=== PATIENT | male | born 1955 | race African-American/Black ===

== ENCOUNTER 2016-10-21 18:03 | Inpatient (IN) | payer OTHER ==
[~2016-10-21] VITALS: Ht 185.4 cm; Wt 102.0 kg
[2016-10-21] VITALS (7 sets, daily range): BP systolic 154–174; BP diastolic 75–92
[~2016-10-21 18:03] MED LIST: ACCUPRIL10 MG PO; ACCUPRIL5 MG PO; ACTOS30 MG PO; ADVAIR 250/501 DISK IH; AMBIEN10 MG PO; ASPIRIN325 MG PO; AUGMENTIN875 MG PO; BENTYL20 MG PO; BP MED; CEFTIN500 MG PO; DEPO-PROVER150 MG/ML IM; DILAUDID2 MG PO; DOCUSATE SODIU100 MG PO; ENDOCET 5-3251 EACH PO; ENTEREG12 MG PO; FEOSOL325 MG PO; FLEXERIL10 MG PO; FOLIC ACID; FOLIC ACID1 MG PO; FOLVITE0.5 MG PO; GABAPENTIN300 MG PO; GLUCOPHAGE XR750 MG PO; GLUCOPHAGE1000 M1 PO; LANTUS 10100 UNITS/ SC; LANTUS 3 M100 UNITS/ SC; LANTUS 3 M100 UNITS1 SC; LANTUS100 UNIT/1 SC; LANTUS100 UNIT/1 SQ; LIDODERM 5% P1 PATCH TD; LIPITOR40 MG PO; LIPITOR5 MG PO; LITE COAT ASPI325 M1 PO; METFORMIN HCL1000 MG PO; MOBIC15 MG PO; NAPROSYN500 MG PO; NIASPAN,SLO-NI500 MG PO; NICOTINE PATCH1 EAC2 TD; NORCO 7.5/321 TABLET PO; NOVOLOG PE100 UNITS/ SC; PERCOCET 10/1 TABLET PO; PERCOCET 5/31 TABLET PO; PREDNISONE10 MG PO; PROAIR HFA8.5 GM IH; PriLOSEC PO; QUINAPRIL HCL20 MG PO; QUINAPRIL HCL5 MG PO; SYMBICORT60 INHALAT IH; THERAGRAN1 TABLET PO; TORADOL10 MG PO; ULTRAM50 MG PO; VALIUM5 MG PO; VENTOLIN HFA18 GM IH; VITAMIN B-6100 MG PO
[2016-10-21 20:22] LABS: ABSOLUTE RETICULOCYTE CT. 0.15 M/uL (0.02-0.08); HEMATOCRIT 31.6 % (38.0-50.0); IMM.RETIC FRACTION 4.7 % (3-19); MCH 26.5 PG (29.0-34.0); MCV 71.7 FL (86-99); MEAN PLAT.VOLUME 10.4 uM^3 (9.0-12.4); PLATELET COUNT 250 K/uL (156-360); RBC DIS.WIDTH-CV 17.7 % (11.8-14.6); RBC DIS.WIDTH-SD 44.8 % (39-53); RED BLOOD COUNT 4.41 M/uL (4.00-5.50); WHITE BLOOD COUNT 15.9 K/uL (4.1-10.2)
[2016-10-21 20:30] LABS: CHLORIDE 108 mEq/L (99-109); POTASSIUM 4.5 mEq/L (3.7-5.4); SODIUM 139 mEq/L (136-147)
[2016-10-21 20:32] LABS: GLUCOSE 494 mg/dL (70-99)
[2016-10-21 20:33] LABS: ANION GAP 8 MEQ/L (2-14)
[2016-10-21 20:36] LABS: GFR ESTIMATE (CALCULATED) > 59 mL/min/
[2016-10-21 20:37] LABS: UREA NITROGEN (BUN) 16 mg/dL (9-23)
[2016-10-21 20:55] LABS: SAMPLE HEMOLYSIS CHECK 0; SAMPLE ICTERIC CHECK 0; SAMPLE LIPEMIA CHECK 1
[2016-10-21 21:01] LABS: LACTATE DEHYDROGENASE 362 IU/L (20-246)
[2016-10-21 21:03] LABS: TROP-I INTERPRETATION NEGATIVE; TROPONIN-I < 0.01 ng/mL (0.0-0.30)
[2016-10-21 21:06] LABS: CARBON DIOXIDE (BICARBONATE) 31.2 MEQ/L (20-31)
[2016-10-21 21:28] LABS: BASOPHIL COUNT 0.1 K/uL (0-0.1); EOSINOPHIL (%) 4.3 % (0-5); EOSINOPHIL COUNT 0.7 K/uL (0-0.3); HEMATOLOGY COMMENT 1 SMEAR COMPATIBLE; IMMATURE GRANULOCYTE (%) 1.1 % (0.0-0.7); IMMATURE GRANULOCYTE COUNT 1.7 K/uL; LYMPHOCYTE COUNT 2.4 K/uL (1.0-2.8); MONOCYTE (%) 8.8 % (3-12); MONOCYTE COUNT 1.4 K/uL (0-0.8); NEUTROPHIL (%) 70.2 % (45-76); NEUTROPHIL COUNT 11.2 K/uL (1.8-6.4); RETICULOCYTE COUNT 3.3 % (0.5-1.8); USER ID WCD
[2016-10-22] MEDS ORDERED: ACCUPRIL40 MG PO (00:36)
[2016-10-22 03:02] VITALS: BP 174/82
[2016-10-22 06:33] LABS: HEMATOCRIT 29.6 % (38.0-50.0); MCH 26.1 PG (29.0-34.0); MCHC 35.8 G/DL (30.0-36.0); MCV 72.9 FL (86-99); MEAN PLAT.VOLUME 10.4 uM^3 (9.0-12.4); PLATELET COUNT 218 K/uL (156-360); RED BLOOD COUNT 4.06 M/uL (4.00-5.50); WHITE BLOOD COUNT 17.7 K/uL (4.1-10.2)
[2016-10-22 06:47] LABS: ALKALINE PHOSPHATASE 127 IU/L (3-129); ANION GAP 5 MEQ/L (2-14); CHLORIDE 108 MEQ/L (99-109); GFR ESTIMATE (CALCULATED) > 59 mL/min/; POTASSIUM 4.1 MEQ/L (3.7-5.4); SAMPLE HEMOLYSIS CHECK 0; SAMPLE ICTERIC CHECK 0; SAMPLE LIPEMIA CHECK 0; SODIUM 140 MEQ/L (136-147); TOTAL BILIRUBIN 1.1 MG/DL (0.0-1.0); UREA NITROGEN (BUN) 9 mg/dL (9-23)
[2016-10-22 06:52] LABS: GLUCOSE 197 mg/dL (70-99)
[2016-10-22 08:06] LABS: POINT-OF-CARE METER ID UU14100415
[2016-10-22 08:13] VITALS: BP 137/63
[2016-10-22 12:00] VITALS: BP 138/77
[2016-10-22 13:44] LABS: ADD MIUA? NO; BILIRUBIN NEGATIVE; BLOOD NEGATIVE; COLOR YELLOW ((YELLOW)); GLUCOSE (STRIP) 50; KETONES NEGATIVE; LEUKOCYTES NEGATIVE; NITRITE NEGATIVE; PROTEIN (STRIP) NEGATIVE; UCUL ADDED? NO; UROBILINOGEN 0.2 MG/DL (0.2-1.0)
[2016-10-22 15:46] VITALS: BP 151/67
[2016-10-22 19:30] VITALS: BP 132/58
[2016-10-22 21:00] LABS: POINT-OF-CARE METER ID UU13113725
[2016-10-22 23:07] VITALS: BP 127/70
[2016-10-23 03:33] VITALS: BP 150/81
[2016-10-23 08:08] VITALS: BP 132/67
[2016-10-23 09:30] LABS: ALKALINE PHOSPHATASE 154 IU/L (3-129); ANION GAP 7 MEQ/L (2-14); CHLORIDE 103 MEQ/L (99-109); GFR ESTIMATE (CALCULATED) > 59 mL/min/; GLUCOSE 190 mg/dL (70-99); LACTATE DEHYDROGENASE 326 IU/L (20-246); POTASSIUM 3.9 MEQ/L (3.7-5.4); SAMPLE HEMOLYSIS CHECK 0; SAMPLE ICTERIC CHECK 0; SAMPLE LIPEMIA CHECK 0; SODIUM 138 MEQ/L (136-147); UREA NITROGEN (BUN) 10 mg/dL (9-23)
[2016-10-23 09:31] LABS: TOTAL BILIRUBIN 1.9 MG/DL (0.0-1.0)
[2016-10-23 09:51] LABS: ABSOLUTE RETICULOCYTE CT. 0.24 M/uL (0.02-0.08); HEMATOCRIT 29.2 % (38.0-50.0); IMM.RETIC FRACTION 10.8 % (3-19); MCH 26.9 PG (29.0-34.0); MCV 72.8 FL (86-99); MEAN PLAT.VOLUME 10.6 uM^3 (9.0-12.4); PLATELET COUNT 204 K/uL (156-360); RBC DIS.WIDTH-CV 17.6 % (11.8-14.6); RED BLOOD COUNT 4.01 M/uL (4.00-5.50); WHITE BLOOD COUNT 15.4 K/uL (4.1-10.2)
[2016-10-23 10:04] LABS: RETICULOCYTE COUNT 5.9 % (0.5-1.8)
[2016-10-23 11:13] VITALS: BP 155/82
[2016-10-23 11:36] LABS: POINT-OF-CARE METER ID UU13113725
[2016-10-23 15:30] VITALS: BP 129/71
[2016-10-23 23:04] VITALS: BP 147/77
[2016-10-24 08:04] VITALS: BP 132/80
[2016-10-24 09:29] LABS: MCH 26.8 PG (29.0-34.0); MCHC 36.5 G/DL (30.0-36.0); MCV 73.6 FL (86-99); MEAN PLAT.VOLUME 10.1 uM^3 (9.0-12.4); PLATELET COUNT 192 K/uL (156-360); RBC DIS.WIDTH-CV 17.9 % (11.8-14.6); RBC DIS.WIDTH-SD 47.8 % (39-53); RED BLOOD COUNT 4.21 M/uL (4.00-5.50); WHITE BLOOD COUNT 15.9 K/uL (4.1-10.2)
[2016-10-24 09:42] LABS: ANION GAP 10 MEQ/L (2-14); CHLORIDE 99 MEQ/L (99-109); GFR ESTIMATE (CALCULATED) > 59 mL/min/; GLUCOSE 280 mg/dL (70-99); SAMPLE HEMOLYSIS CHECK 0; SAMPLE ICTERIC CHECK 0; SAMPLE LIPEMIA CHECK 0; SODIUM 134 MEQ/L (136-147); UREA NITROGEN (BUN) 14 mg/dL (9-23)
[2016-10-24 11:10] VITALS: BP 146/77
[2016-10-24 15:33] VITALS: BP 135/69
[2016-10-24 16:47] LABS: POINT-OF-CARE METER ID UU13113725
[2016-10-24 20:58] LABS: APPEARANCE CLEAR/COLORLESS
[2016-10-24 21:09] LABS: RED CELL AREA COUNTED 18; RED CELL COUNT 0 /MM^3 (0-1); RED CELL DILUTION 1; WBC AREA COUNTED 18; WBC DILUTION 1; WHITE CELL COUNT 1 /MM^3 (0-5); WHITE CELL RAW COUNT 2
[2016-10-24 21:43] LABS: CSF EOSINOPHILS 0 % (0-25); MONO RAW COUNT 11; MONONUCLEAR WBC'S 100 % (50-90); POLYNUCLEAR WBC'S 0 % (0-3)
[2016-10-24 22:55] VITALS: BP 127/59
[2016-10-25 08:39] VITALS: BP 111/59
[2016-10-25 08:57] LABS: HEMATOCRIT 27.1 % (38.0-50.0); MCH 26.6 PG (29.0-34.0); MCHC 36.5 G/DL (30.0-36.0); MCV 72.8 FL (86-99); MEAN PLAT.VOLUME 10.9 uM^3 (9.0-12.4); PLATELET COUNT 212 K/uL (156-360); RBC DIS.WIDTH-CV 17.6 % (11.8-14.6); RBC DIS.WIDTH-SD 46.5 % (39-53); RED BLOOD COUNT 3.72 M/uL (4.00-5.50); WHITE BLOOD COUNT 15.8 K/uL (4.1-10.2)
[2016-10-25 10:46] LABS: POINT-OF-CARE METER ID UU13113725
[2016-10-25 11:31] LABS: INFLUENZA A VIRAL ANTIGEN NEGATIVE; INFLUENZA B VIRAL ANTIGEN NEGATIVE
[2016-10-25 15:17] VITALS: BP 111/60
[2016-10-25 16:03] LABS: POINT-OF-CARE METER ID UU13113725
[2016-10-25 23:01] VITALS: BP 116/58
[2016-10-26 06:12] LABS: IMM.RETIC FRACTION 32.3 % (3-19); MCH 25.9 PG (29.0-34.0); MCHC 35.8 G/DL (30.0-36.0); MCV 72.4 FL (86-99); MEAN PLAT.VOLUME 10.1 uM^3 (9.0-12.4); NRBC (%) 1.3 /100 WBC (0-0); PLATELET COUNT 221 K/uL (156-360); RBC DIS.WIDTH-CV 17.5 % (11.8-14.6); RBC DIS.WIDTH-SD 46.6 % (39-53); RED BLOOD COUNT 3.59 M/uL (4.00-5.50); WHITE BLOOD COUNT 13.1 K/uL (4.1-10.2)
[2016-10-26 06:29] LABS: EOSINOPHIL (%) 7.5 % (0-5); IMMATURE GRANULOCYTE (%) 0.5 % (0.0-0.7); IMMATURE GRANULOCYTE COUNT 0.1 K/uL; LYMPHOCYTE COUNT 2.4 K/uL (1.0-2.8); MONOCYTE (%) 9.6 % (3-12); MONOCYTE COUNT 1.3 K/uL (0-0.8); NEUTROPHIL (%) 63.9 % (45-76); NEUTROPHIL COUNT 8.4 K/uL (1.8-6.4)
[2016-10-26 06:36] LABS: RETICULOCYTE COUNT 5.6 % (0.5-1.8)
[2016-10-26 06:39] LABS: ANION GAP 7 MEQ/L (2-14); CHLORIDE 102 MEQ/L (99-109); GFR ESTIMATE (CALCULATED) > 59 mL/min/; GLUCOSE 145 mg/dL (70-99); LACTATE DEHYDROGENASE 306 IU/L (20-246); POTASSIUM 4.3 MEQ/L (3.7-5.4); SAMPLE HEMOLYSIS CHECK 0; SAMPLE ICTERIC CHECK 0; SAMPLE LIPEMIA CHECK 0; SODIUM 134 MEQ/L (136-147); UREA NITROGEN (BUN) 20 mg/dL (9-23)
[2016-10-26 07:26] VITALS: BP 124/72
[2016-10-26 08:11] LABS: HEMATOLOGY COMMENT 1 SMEAR COMPATIBLE; USER ID STC
[2016-10-26 11:18] LABS: POINT-OF-CARE METER ID UU13113725
[2016-10-26 11:44] LABS: HBSG INDEX 0.23
[2016-10-26 11:45] LABS: HIV INDEX 0.06; HIV-1/2 AB/AG COMBO Nonreactive; HPCA INDEX 0.09
[2016-10-26 15:08] VITALS: BP 107/59
[2016-10-26 16:21] LABS: POINT-OF-CARE METER ID UU13113725
[2016-10-26 21:56] LABS: HSV CSF Spec Source CSF (())
[2016-10-26 22:53] VITALS: BP 118/56
[2016-10-27 03:38] LABS: POINT-OF-CARE METER ID UU13113725
[2016-10-27 06:24] LABS: POINT-OF-CARE METER ID UU13113725
[2016-10-27 07:29] VITALS: BP 120/59
[2016-10-27] MEDS ORDERED: IBUPROFEN400 MG PO (10:00)
[2016-10-27] MEDS ORDERED: AUGMENTIN875 MG PO (10:00)
[2016-10-27 10:17] LABS: HEMATOCRIT 26.2 % (38.0-50.0); MCH 25.2 PG (29.0-34.0); MCHC 34.7 G/DL (30.0-36.0); MCV 72.6 FL (86-99); MEAN PLAT.VOLUME 9.7 uM^3 (9.0-12.4); PLATELET COUNT 251 K/uL (156-360); RBC DIS.WIDTH-CV 17.8 % (11.8-14.6); RBC DIS.WIDTH-SD 46.6 % (39-53); RED BLOOD COUNT 3.61 M/uL (4.00-5.50); WHITE BLOOD COUNT 10.8 K/uL (4.1-10.2)
[2016-10-27] MEDS ORDERED: IBUPROFEN600 MG PO (10:32)
[2016-10-27 11:29] LABS: POINT-OF-CARE METER ID UU13113725
== END 2016-10-27 16:00 | disposition home or self-care (01) | DRG 812 ==
LOC: EME 18:03 → 5EAST 10-22 01:44 → EDOF 10-22 01:44 → 5EAST 10-22 02:53
PROVIDERS: Emergency Medicine; Hospitalist; Internal Medicine; Internal Medicine Infectious Disease
PROC: 009U3ZX Drainage of Spinal Canal, Percutaneous Approach, Diagnostic (ICD-10-PCS; principal; 2016-10-24)
DX: D57.00 Hb-SS disease with crisis, unspecified (principal); D72.829 Elevated white blood cell count, unspecified; R50.9 Fever, unspecified; M87.9 Osteonecrosis, unspecified; F14.10 Cocaine abuse, uncomplicated; D73.5 Infarction of spleen; I10 Essential (primary) hypertension; E11.9 Type 2 diabetes mellitus without complications; E78.5 Hyperlipidemia, unspecified; F17.200 Nicotine dependence, unspecified, uncomplicated; Z96.643 Presence of artificial hip joint, bilateral; Z79.4 Long term (current) use of insulin; Z79.82 Long term (current) use of aspirin; Z66 Do not resuscitate
CPT/HCPCS: 62270; 71010; 71020; 71275; 77002; 80048; 80053; 81003; 82010; 82803; 82945; 82948; 83615; 84157; 84484; 85025; 85027; 85045; 86703; 86803; 87040; 87070; 87205; 87340; 87502; 87529 90; 89051; 93005; 94640; 94640 76; 94799; 97530 GP; 99281; 99285; J0696; J1170; J1644; J1815; J3010; J7030; J7050

== ENCOUNTER 2016-12-10 14:55 | Observation (INO) | payer OTHER ==
[~2016-12-10] VITALS: Ht 185.4 cm; Wt 103.7 kg
[~2016-12-10 14:55] MED LIST changes: +ACCUPRIL40 MG PO; +IBUPROFEN400 MG PO; +IBUPROFEN600 MG PO
[2016-12-10 15:52] LABS: HEMATOCRIT 34.6 % (38.0-50.0); MCH 25.4 PG (29.0-34.0); MCHC 35.8 G/DL (30.0-36.0); MCV 70.8 FL (86-99); MEAN PLAT.VOLUME 9.6 uM^3 (9.0-12.4); PLATELET COUNT 348 K/uL (156-360); RBC DIS.WIDTH-CV 17.2 % (11.8-14.6); RBC DIS.WIDTH-SD 43.6 % (39-53); RED BLOOD COUNT 4.89 M/uL (4.00-5.50); WHITE BLOOD COUNT 10.2 K/uL (4.1-10.2)
[2016-12-10 15:53] LABS: CHLORIDE 107 mEq/L (99-109); POTASSIUM 5.2 mEq/L (3.7-5.4); SODIUM 139 mEq/L (136-147)
[2016-12-10 15:54] LABS: GLUCOSE 176 mg/dL (70-99)
[2016-12-10 15:56] LABS: ANION GAP 11 MEQ/L (2-14)
[2016-12-10 15:58] LABS: GFR ESTIMATE (CALCULATED) > 59 mL/min/
[2016-12-10 15:59] LABS: UREA NITROGEN (BUN) 16 mg/dL (9-23)
[2016-12-10 16:02] LABS: TROP-I INTERPRETATION NEGATIVE; TROPONIN-I < 0.01 ng/mL (0.0-0.30)
[2016-12-10] MEDS ORDERED: PERCOCET 10/1 TABLET PO (19:32)
[2016-12-10] MEDS ORDERED: VOLTAREN 1% GE100 GM TP (19:33)
[2016-12-10 22:11] VITALS: BP 166/77
[2016-12-10 22:21] LABS: RETICULOCYTE COUNT 4.1 % (0.5-1.8)
[2016-12-10 22:23] LABS: ABSOLUTE RETICULOCYTE CT. 0.19 M/uL (0.02-0.08)
[2016-12-10 22:24] LABS: IMM.RETIC FRACTION 15.2 % (3-19); RETIC HGB EQUIVALENT 27.1 (28-36)
[2016-12-10 22:59] LABS: TROP-I INTERPRETATION NEGATIVE; TROPONIN-I < 0.01 ng/mL (0.0-0.30)
[2016-12-11 03:01] LABS: ADD MIUA? NO; BILIRUBIN NEGATIVE; BLOOD NEGATIVE; COLOR YELLOW ((YELLOW)); GLUCOSE (STRIP) >=500; KETONES NEGATIVE; LEUKOCYTES NEGATIVE; NITRITE NEGATIVE; PROTEIN (STRIP) NEGATIVE; SPECIFIC GRAVITY 1.009 (1.000-1.030); UCUL ADDED? NO; UROBILINOGEN 0.2 MG/DL (0.2-1.0)
[2016-12-11 04:04] LABS: AMPHETAMINES QUANT VALUE 0 NG/ML; BARBITUATES QUANT VALUE 0 NG/ML; BENZODIAZEPINES QUANT VALUE 0 NG/ML; BENZODIAZEPINES, URINE SCREEN Negative (200 ng/mL); MARIJUANA QUANT VALUE 0 NG/ML; PHENCYCLIDINE QUANT VALUE 0 NG/ML
[2016-12-11 04:16] VITALS: BP 114/60
[2016-12-11 04:24] LABS: TROP-I INTERPRETATION NEGATIVE; TROPONIN-I < 0.01 ng/mL (0.0-0.30)
[2016-12-11 04:54] LABS: HDL CHOLESTEROL 40 MG/DL (Desirable>=40); LDL CHOLESTEROL 96 mg/dL (Desirable<100); NON-HDL CHOLESTEROL 132 mg/dL (Desirable<160); TOTAL CHOLESTEROL 172 mg/dL (Desirable<200); TRIGLYCERIDES 180 MG/DL (Normal: <150)
[2016-12-11 08:05] VITALS: BP 124/67
[2016-12-11 09:47] LABS: METH RESISTANT S AUREUS PCR POSITIVE (NEGATIVE)
[2016-12-11 09:48] LABS: PROBE CHECK PASS
[2016-12-11 10:21] LABS: ANION GAP 16 MEQ/L (2-14); CHLORIDE 112 MEQ/L (99-109); GFR ESTIMATE (CALCULATED) > 59 mL/min/; UREA NITROGEN (BUN) 20 mg/dL (9-23)
[2016-12-11 10:33] LABS: GLUCOSE 104 mg/dL (70-99); POTASSIUM 4.1 MEQ/L (3.7-5.4); SODIUM 147 MEQ/L (136-147)
[2016-12-11 10:34] LABS: HEMATOCRIT 31.3 % (38.0-50.0); MCH 25.5 PG (29.0-34.0); MCHC 35.5 G/DL (30.0-36.0); MCV 71.8 FL (86-99); MEAN PLAT.VOLUME 10.1 uM^3 (9.0-12.4); NRBC (%) 1.9 /100 WBC (0-0); PLATELET COUNT 318 K/uL (156-360); RBC DIS.WIDTH-CV 17.2 % (11.8-14.6); RBC DIS.WIDTH-SD 44.1 % (39-53); RED BLOOD COUNT 4.36 M/uL (4.00-5.50); WHITE BLOOD COUNT 11.9 K/uL (4.1-10.2)
[2016-12-11 11:17] VITALS: BP 134/65
[2016-12-11 12:29] LABS: POINT-OF-CARE METER ID UU13113700
[2016-12-12 09:28] LABS: POINT-OF-CARE METER ID UU13113831
== END 2016-12-11 14:06 | disposition home or self-care (01) ==
LOC: EME 14:55 → EDOF 19:50 → 5WEST 19:50 → EDOF 19:50 → 5WEST 21:59
PROVIDERS: Hospitalist; Internal Medicine; Physician Assistant Medical
DX: R07.9 Chest pain, unspecified (principal); I10 Essential (primary) hypertension; E78.5 Hyperlipidemia, unspecified; D57.3 Sickle-cell trait; E11.40 Type 2 diabetes mellitus with diabetic neuropathy, unspecified; F14.10 Cocaine abuse, uncomplicated; R33.9 Retention of urine, unspecified; E66.9 Obesity, unspecified; F17.200 Nicotine dependence, unspecified, uncomplicated; Z79.4 Long term (current) use of insulin; I25.10 Atherosclerotic heart disease of native coronary artery without angina pectoris
CPT/HCPCS: 71020; 80048; 80048 91; 80061; 80306 90; 81003; 82948; 84484; 85027; 85045; 87641; 93005; 94640; 99202; 99281; 99285; G0378; J1650; J1815; J7030

== ENCOUNTER 2017-02-16 18:48 | Emergency (ER) | payer OTHER ==
[~2017-02-16] VITALS: Ht 185.4 cm; Wt 109.8 kg
[~2017-02-16 18:48] MED LIST changes: +VOLTAREN 1% GE100 GM TP
[2017-02-16] MEDS ORDERED: FLEXERIL10 MG PO (20:01)
[2017-02-16] MEDS ORDERED: PERCOCET 5/31 TABLET PO (20:01)
[2017-02-16] MEDS ORDERED: MOTRIN600 MG PO (20:01)
[2017-02-16 20:12] VITALS: BP 137/64
== END 2017-02-16 20:13 | disposition home or self-care (01) ==
LOC: EME 18:48
DX: S46.912A Strain of unspecified muscle, fascia and tendon at shoulder and upper arm level, left arm, initial encounter (principal); V89.2XXA Person injured in unspecified motor-vehicle accident, traffic, initial encounter; Y92.410 Unspecified street and highway as the place of occurrence of the external cause; M53.85 Other specified dorsopathies, thoracolumbar region; I10 Essential (primary) hypertension; E11.9 Type 2 diabetes mellitus without complications; Z79.4 Long term (current) use of insulin; J44.9 Chronic obstructive pulmonary disease, unspecified; F17.200 Nicotine dependence, unspecified, uncomplicated; Z96.643 Presence of artificial hip joint, bilateral
CPT/HCPCS: 99281; 99284

== ENCOUNTER 2017-10-17 03:45 | Emergency (ER) | payer OTHER ==
[~2017-10-17] VITALS: Ht 185.4 cm; Wt 109.9 kg
[~2017-10-17 03:45] MED LIST changes: +MOTRIN600 MG PO
[2017-10-17 05:40] LABS: CHLORIDE 105 mEq/L (99-109); POTASSIUM 4.5 mEq/L (3.7-5.4); SODIUM 139 mEq/L (136-147)
[2017-10-17 05:41] LABS: MAGNESIUM 1.8 mg/dL (1.3-2.7)
[2017-10-17 05:42] LABS: GLUCOSE 299 mg/dL (70-99)
[2017-10-17 05:46] LABS: CREATININE 1.2 mg/dL (0.6-1.3); GFR ESTIMATE (CALCULATED) > 59 mL/min/ (58.99-99999)
[2017-10-17 05:47] LABS: UREA NITROGEN (BUN) 15 mg/dL (9-23)
[2017-10-17 06:20] LABS: BASOPHIL (%) 0.6 % (0-1); BASOPHIL COUNT 0.1 K/uL (0-0.1); EOSINOPHIL (%) 6.6 % (0-5); EOSINOPHIL COUNT 0.9 K/uL (0-0.3); HEMATOCRIT 31.3 % (38.0-50.0); HEMOGLOBIN 11.5 G/DL (12.5-16.6); IMMATURE GRANULOCYTE (%) 0.7 % (0.0-0.7); LYMPHOCYTE COUNT 1.8 K/uL (1.0-2.8); MCH 27.1 PG (29.0-34.0); MCHC 36.7 G/DL (30.0-36.0); MCV 73.6 FL (86-99); MONOCYTE (%) 8.6 % (3-12); MONOCYTE COUNT 1.2 K/uL (0-0.8); NEUTROPHIL (%) 70.5 % (45-76); NEUTROPHIL COUNT 9.7 K/uL (1.8-6.4); NRBC (%) 2.5 /100 WBC (0-0); PLATELET COUNT 307 K/uL (156-360); RBC DIS.WIDTH-CV 16.8 % (11.8-14.6); RBC DIS.WIDTH-SD 44.4 % (39-53); RED BLOOD COUNT 4.25 M/uL (4.00-5.50); WHITE BLOOD COUNT 13.7 K/uL (4.1-10.2)
[2017-10-17 06:47] VITALS: BP 156/77
== END 2017-10-17 06:50 | disposition home or self-care (01) ==
LOC: EME 03:45
PROVIDERS: Emergency Medicine
DX: M25.552 Pain in left hip (principal); D57.1 Sickle-cell disease without crisis; J44.9 Chronic obstructive pulmonary disease, unspecified; I10 Essential (primary) hypertension; E11.9 Type 2 diabetes mellitus without complications; Z79.4 Long term (current) use of insulin; F17.200 Nicotine dependence, unspecified, uncomplicated; Z96.643 Presence of artificial hip joint, bilateral; Z88.5 Allergy status to narcotic agent
CPT/HCPCS: 73502; 80048; 83735; 85025; 99281; 99285; J1885; J2270; J7040; J7050

== ENCOUNTER 2018-03-21 23:28 | Emergency (ER) | payer OTHER ==
[~2018-03-21] VITALS: Ht 185.4 cm; Wt 100.9 kg
[2018-03-22 01:54] LABS: BASOPHIL (%) 0.5 % (0-1); BASOPHIL COUNT 0.1 K/uL (0-0.1); EOSINOPHIL COUNT 1.7 K/uL (0-0.3); HEMATOCRIT 30.1 % (38.0-50.0); HEMOGLOBIN 11.3 G/DL (12.5-16.6); IMMATURE GRANULOCYTE (%) 0.9 % (0.0-0.7); LYMPHOCYTE (%) 16.6 % (15-42); LYMPHOCYTE COUNT 2.7 K/uL (1.0-2.8); MCH 27.9 PG (29.0-34.0); MCHC 37.5 G/DL (30.0-36.0); MCV 74.3 FL (86-99); MONOCYTE COUNT 1.5 K/uL (0-0.8); NEUTROPHIL COUNT 10.4 K/uL (1.8-6.4); NRBC (%) 3.1 /100 WBC (0-0); PLATELET COUNT 289 K/uL (156-360); RBC DIS.WIDTH-CV 17.2 % (11.8-14.6); RBC DIS.WIDTH-SD 46.1 % (39-53); RED BLOOD COUNT 4.05 M/uL (4.00-5.50); WHITE BLOOD COUNT 16.5 K/uL (4.1-10.2)
[2018-03-22 01:55] LABS: CHLORIDE 105 mEq/L (99-109); POTASSIUM 4.8 mEq/L (3.7-5.4); SODIUM 141 mEq/L (136-147)
[2018-03-22 01:56] LABS: GLUCOSE 375 mg/dL (70-99)
[2018-03-22 02:00] LABS: CREATININE 1.4 mg/dL (0.6-1.3); GFR ESTIMATE (CALCULATED) > 59 mL/min/ (58.99-99999)
[2018-03-22 02:01] LABS: UREA NITROGEN (BUN) 21 mg/dL (9-23)
[2018-03-22 03:19] LABS: ABSOLUTE RETICULOCYTE CT. 0.24 M/uL (0.02-0.08)
[2018-03-22] MEDS ORDERED: PERCOCET 5/31 TABLET PO (04:16)
[2018-03-22] MEDS ORDERED: TORADOL10 MG PO (04:16)
[2018-03-22 04:24] VITALS: BP 143/79
== END 2018-03-22 04:24 | disposition home or self-care (01) ==
LOC: EME 23:28
PROVIDERS: Emergency Medicine
DX: D57.00 Hb-SS disease with crisis, unspecified (principal); I10 Essential (primary) hypertension; J44.9 Chronic obstructive pulmonary disease, unspecified; E11.9 Type 2 diabetes mellitus without complications; Z79.4 Long term (current) use of insulin; F17.200 Nicotine dependence, unspecified, uncomplicated; Z96.643 Presence of artificial hip joint, bilateral; Z88.5 Allergy status to narcotic agent
CPT/HCPCS: 80048; 85025; 85046; 99281; 99285; J1885; J3010; J7030